=== PATIENT | female | born 1950 | race Caucasian/White ===

== ENCOUNTER 2018-08-27 15:35 | Outpatient (REF) | payer OTHER, SELFPAY ==
--- NOTE | 2018-08-27 15:00 | PAPFT_PTH ---
PATIENT: JEF RICHARDSON LOC: [facility] U#:[id number] AGE/SX: 68/F ROOM: RE08/27/[address]: Kasia Carrillo : 1950 BED: DIS: 08/27/2018 SPEC #: [id number] RECD: 08/27/18 17:43 STATUS: HI RESarwat #: [id number] JAYA: 08/27/18 15:[address]: Kasia Carrillo DEPT: [facility] Cytology RECD BY: Tonia Mehta ENTERED: 08/27/18 17:43 SP TYPE: PAPFT OTHR DR: Bethanie Ponce Tissues: 1 - CX/ENDOCX FOR PAP SMEARS Procedures: PAP THIN PREP/[facility] Screening HPV DNA PROBE Comments: [id number]
== END 2018-08-27 15:55 ==
LOC: LBN 15:35
PROVIDERS: PCP Family Medicine; Visit Provider Obstetrics & Gynecology Gynecology
DX: Z12.4 Encounter for screening for malignant neoplasm of cervix (principal); Z11.51 Encounter for screening for human papillomavirus (HPV)
CPT/HCPCS: 88142; 87624